=== PATIENT | female | born 1985 | race Native Hawaiian/Other Pacific Islander ===

== ENCOUNTER 2017-08-01 04:18 | Emergency (ER) | payer SELFPAY ==
[2017-08-01 05:13] LABS: Basophils % (Auto) 0.4 % (0.0-1.8); Eosinophils % (Auto) 0.2 % (0.0-4.3); Hematocrit 39.2 % (30.3-42.9); Hemoglobin 13.1 gm/dl (10.1-14.3); Mean Corpuscular HGB Conc 34 % (30-34); Mean Corpuscular Hemoglobin 29 pg (28-32); Mean Corpuscular Volume 86 fl (79-97); Platelet Count 264 K/mm3 (140-440); Red Blood Count 4.56 M/mm3 (3.65-5.03); Red Cell Distribution Width 14.2 % (13.2-15.2); White Blood Count 16.9 K/mm3 (4.5-11.0)
[2017-08-01 05:30] LABS: Alanine Aminotransferase 12 units/L (7-56); Albumin 4.5 g/dL (3.9-5); Albumin/Globulin Ratio 1.3 %; Alkaline Phosphatase 64 units/L (35-129); Anion Gap 20 mmol/L; BUN/Creatinine Ratio 15.71; Blood Urea Nitrogen 11 mg/dL (7-17); Calcium 9.4 mg/dL (8.4-10.2); Carbon Dioxide 19 mmol/L (22-30); Chloride 97.3 mmol/L (98-107); Glucose 102 mg/dL (65-100); Lipase 21 units/L (13-60); Potassium 3.3 mmol/L (3.6-5.0); Sodium 133 mmol/L (137-145)
[2017-08-01 06:12] LABS: Bilirubin,Urine NEG (Negative); Blood,Urine SM (Negative); Ketones,Urine TR mg/dL (Negative); Leukocyte Esterase,Urine NEG (Negative); Mucus,Urine 3+ /HPF; Nitrite,Urine NEG (Negative); Urobilinogen,Urine < 2.0 mg/dL (<2.0)
[2017-08-01] MEDS ORDERED: NACL 0.9% 1000 ML 1,000 ML IV ONE (09:54)
[2017-08-01] MEDS ORDERED: ZOFRAN IV ONE ×2 (09:54→11:59)
--- NOTE | 2017-08-01 09:54 | Emergency Department Report ---
ED General Adult HPI - General Chief complaint: Nausea/Vomiting/Diarrhea Stated complaint: VOMITING, DIARRHEA Time Seen by Provider: 08/01/17 09:48 Source: patient, family Mode of arrival: Ambulatory Limitations: Language Barrier - History of Present Illness Initial comments: She complains of diarrhea since yesterday associated with nausea and vomiting. She denies fever or chills. She states she does not have chronic diarrhea. 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 She denies significant abdominal pain. She denies signs of GI bleeding. Patient denies sick contacts recent travel or unusual food. -: hour(s) Radiation: other Consistency: intermittent (some crampy abdominal discomfort only), now resolved Improves with: none Worsens with: none Associated Symptoms: denies other symptoms - Related Data Previous Rx's Medication Instructions Recorded Last Taken Type Ondansetron [Zofran Odt] 4 mg PO Q6H #7 tab.rapdis 08/01/17 Unknown Rx traMADol [Ultram 50 MG tab] 50 mg PO Q6HR PRN #10 tablet 08/01/17 Unknown Rx Allergies Allergy/AdvReac Type Severity Reaction Status Date / Time No Known Allergies Allergy Verified 08/01/17 04:28 ED Review of Systems ROS: Stated complaint: VOMITING, DIARRHEA Other details as noted in HPI Constitutional: denies: chills, fever Eyes: denies: eye pain, eye discharge, vision change ENT: denies: ear pain, throat pain Respiratory: denies: cough, shortness of breath, wheezing Cardiovascular: denies: chest pain, palpitations Endocrine: no symptoms reported Gastrointestinal: nausea, vomiting, diarrhea. denies: abdominal pain Genitourinary: denies: urgency, dysuria, discharge Musculoskeletal: denies: back pain, joint swelling, arthralgia Skin: denies: rash, lesions Neurological: denies: headache, weakness, paresthesias Psychiatric: denies: anxiety, depression Hematological/Lymphatic: denies: easy bleeding, easy bruising ED Past Medical Hx - Past Medical History Previous Medical History?: No - Surgical History Past Surgical History?: No - Social History Smoking Status: Never Smoker Substance Use Type: None - Medications Home Medications: Home Medications Medication Instructions Recorded Confirmed Last Taken Type Ondansetron [Zofran Odt] 4 mg PO Q6H #7 tab.rapdis 08/01/17 Unknown Rx traMADol [Ultram 50 MG tab] 50 mg PO Q6HR PRN #10 tablet 08/01/17 Unknown Rx ED Physical Exam - General General appearance: alert, in no apparent distress, other (mildly dehydrated) - Head Head exam: Present: atraumatic, normocephalic - Eye Eye exam: Present: normal appearance. Absent: scleral icterus - ENT ENT exam: Present: mucous membranes moist - Neck Neck exam: Present: normal inspection - Respiratory Respiratory exam: Present: normal lung sounds bilaterally. Absent: respiratory distress - Cardiovascular Cardiovascular Exam: Present: regular rate, normal rhythm. Absent: systolic murmur, diastolic murmur, rubs, gallop - GI/Abdominal GI/Abdominal exam: Present: soft, normal bowel sounds, other (no abdominal discomfort or abnormal findings whatsoever). Absent: distended, tenderness, guarding, rebound, rigid, organomegaly, mass, bruit, pulsatile mass, hernia - Extremities Exam Extremities exam: Present: normal inspection - Back Exam Back exam: Present: normal inspection - Neurological Exam Neurological exam: Present: alert, oriented X3, CN II-XII intact. Absent: motor sensory deficit - Psychiatric Psychiatric exam: Present: normal affect, normal mood - Skin Skin exam: Present: warm, dry, intact, normal color. Absent: rash ED Course Vital Signs 08/01/17 08/01/17 08/01/17 04:26 04:28 08:33 Temperature 97.9 F 97.9 F 97.8 F Pulse Rate 98 H 98 H 78 Respiratory 20 20 16 Rate Blood Pressure 102/66 102/66 Blood Pressure 101/66 [Left] O2 Sat by Pulse 99 99 96 Oximetry 08/01/17 11:17 Temperature 97.8 F Pulse Rate 60 Respiratory 18 Rate Blood Pressure Blood Pressure 93/47 [Left] O2 Sat by Pulse 100 Oximetry - Reevaluation(s) Reevaluation #1: Patient states he feels much better. His symptoms have resolved except for minimal nausea. She will be given one more dose of Zofran and discharged. She will be referred to a GI doctor. 08/01/17 12:05 ED Medical Decision Making - Lab Data Result diagrams: 08/01/17 04:53 08/01/17 04:53 Laboratory Results - last 24 hr 08/01/17 08/01/17 08/01/17 04:53 04:53 04:53 WBC 16.9 H RBC 4.56 Hgb 13.1 Hct 39.2 MCV 86 MCH 29 MCHC 34 RDW 14.2 Plt Count 264 Lymph % (Auto) 7.5 L Chase % (Auto) 6.6 Eos % (Auto) 0.2 Baso % (Auto) 0.4 Lymph # 1.3 Chase # 1.1 H Eos # 0.0 Baso # 0.1 Seg Neutrophils % 85.3 H Seg Neutrophils # 14.4 H Carbon Dioxide 19 L BUN 11 Creatinine 0.7 Estimated GFR > 60 BUN/Creatinine Ratio 15.71 Glucose 102 H Calcium 9.4 Total Bilirubin 0.50 AST 18 ALT 12 Alkaline Phosphatase 64 Total Protein 8.0 Albumin 4.5 Albumin/Globulin Ratio 1.3 Lipase 21 HCG, Qual Negative Urine Color Urine Turbidity Urine pH Ur Specific [place] Urine Protein Urine Glucose (UA) Urine Ketones Urine Blood Urine Nitrite Urine Bilirubin Urine Urobilinogen Ur Leukocyte Esterase Urine WBC (Auto) Urine RBC (Auto) U Epithel Cells (Auto) Urine Mucus 08/01/17 05:55 WBC RBC Hgb Hct MCV MCH MCHC RDW Plt Count Lymph % (Auto) Chase % (Auto) Eos % (Auto) Baso % (Auto) Lymph # Chase # Eos # Baso # Seg Neutrophils % Seg Neutrophils # Carbon Dioxide BUN Creatinine Estimated GFR BUN/Creatinine Ratio Glucose Calcium Total Bilirubin AST ALT Alkaline Phosphatase Total Protein Albumin Albumin/Globulin Ratio Lipase HCG, Qual Urine Color Fel[place] Urine Turbidity Clear Urine pH 5.0 Ur Specific [place] 1.028 Urine Protein 100 mg/dl Urine Glucose (UA) Neg Urine Ketones Tr Urine Blood Sm Urine Nitrite Neg Urine Bilirubin Neg Urine Urobilinogen < 2.0 Ur Leukocyte Esterase Neg Urine WBC (Auto) 2.0 Urine RBC (Auto) 6.0 U Epithel Cells (Auto) 2.0 Urine Mucus 3+ NA 133 K 3.3 CL 97.3 AG 20 Critical care attestation.: If time is entered above; I have spent that time in minutes in the direct care of this critically ill patient, excluding procedure time. ED Disposition Clinical Impression: Gastroenteritis, Hypokalemia Disposition: TO HOME OR SELFCARE Is pt being admited?: No Does the pt Need Aspirin: No Condition: Stable Instructions: Gastroenteritis (ED), Hypokalemia (ED) Additional Instructions: Return if any fever or significant abdominal pain. Return any acute change or problem. See referral for gastroenterology specialist group. Prescriptions: Ondansetron [Zofran Odt] 4 mg PO Q6H #7 tab.rapdis traMADol [Ultram 50 MG tab] 50 mg PO Q6HR PRN #10 tablet PRN Reason: pain Referrals: [facility] [Provider Group] - 3-5 Days PRIMARY CAREMD [Primary Care Provider] - 08/02/17 Time of Disposition: 12:06
[2017-08-01 11:18] VITALS: BP 93/47
[2017-08-01] MEDS ORDERED: K-DUR PO ONE (12:04)
[2017-08-01] MEDS ORDERED: ULTRAM PO ONE (12:04)
== END 2017-08-01 12:53 | disposition home or self-care (01) ==
LOC: ED 04:18
DX: K52.9 Noninfective gastroenteritis and colitis, unspecified (principal); E87.6 Hypokalemia
CPT/HCPCS: 36415; 80053; 81001; 83690; 84703; 85025; 96361; 96374; 96376; 99284; J2405; J7030